=== PATIENT | male | born 1940 | race Caucasian/White ===

== ENCOUNTER → 2025-07-14 09:00 | Outpatient (REF) | payer MEDICARE, SELFPAY | LOC: RCS 09:00 | PROVIDERS: ATTENDING PHYSICIAN Nuclear Medicine Nuclear Cardiology; FAMILY PHYSICIAN Internal Medicine | DX: I25.10 Atherosclerotic heart disease of native coronary artery without angina pectoris (principal); Z01.818 Encounter for other preprocedural examination; R94.31 Abnormal electrocardiogram [ECG] [EKG] | CPT/HCPCS: 93306 ==

== ENCOUNTER 2025-07-28 06:24 | Day surgery (SDC) | payer MEDICARE, SELFPAY ==
[2025-07-11 11:01] LABS: Hematocrit 28.2 % (39.0-52.0); Hemoglobin 9.1 g/dL (13.0-18.0); Mean Corp Hgb Conc. 32.3 g/dL (33.0-37.0); Mean Corpuscular Volume 98.3 fL (80.0-94.0); Platelet Count 149 10^3/uL (130-400); Red Cell Dist. Width 12.7 % (11.5-14.5)
[2025-07-11 11:42] LABS: Blood Urea Nitrogen 54 mg/dl (9-20); Calcium 9.8 mg/dl (8.4-10.2); Carbon Dioxide 22 mmol/L (22-30); Chloride 109 mmol/L (98-107); Glucose 90 mg/dl (70-99); Potassium 5.3 mmol/L (3.5-5.1); Sodium 139 mmol/L (135-145); eGFR 15.66
[2025-07-11 13:58] VITALS: BMI 26.0
[2025-07-28] VITALS (9 sets, daily range): BP systolic 103–145; BP diastolic 53–78; BMI 26.0
[2025-07-28] MEDS: TYLENOL 1000 MG PO (07:58)
[2025-07-28] MEDS: NORMOSOL-R/PLASMALYTE-A 1000 IV (08:09)
== END 2025-07-28 12:30 | disposition home or self-care (01) ==
LOC: SDS 06:24
PROVIDERS: ATTENDING PHYSICIAN Surgery; FAMILY PHYSICIAN Internal Medicine; OTHER PHYSICIAN Internal Medicine Cardiovascular Disease
DX: K40.90 Unilateral inguinal hernia, without obstruction or gangrene, not specified as recurrent (principal)
CPT/HCPCS: 49650; 80048; 85027; 93005; C1781

== ENCOUNTER 2025-08-03 17:23 | Emergency (ER) | payer MEDICARE, SELFPAY ==
[2025-08-03 17:43] VITALS: BP 117/73
[2025-08-03] MEDS: TYLENOL 650 MG PO (20:38)
[2025-08-03] MEDS: ADACEL 0.5 ML IM (20:39)
--- NOTE | 2025-08-03 22:25 | ED.GENMED ---
History of Present Illness
General
Chief Complaint: Fall
Source: patient
Exam Limitations: none
Time Seen by Provider: 08/03/25 20:14
Nursing documentation reviewed up to this point in time: agreed with
History of Present Illness
History of Present Illness:
Patient is an 85-year-old male who presents to the emergency department after mechanical fall today. He states he was walking back into his home while carrying packages when he tripped on the step falling forward striking his face on the ground.
He denies any LOC however this fall was unwitnessed. After a few minutes he was able to get up and has been ambulatory independently without pain.
Patient states he had a very brief nosebleed which resolved. However, he did notice that he had obvious abrasions to his forehead and a small laceration of his nasal bridge. His urged him to come to the emergency department for further
imaging given obvious head injury.
Patient states he otherwise has felt well since fall. He denies any headache or neck pain. He denies any vomiting, changes in vision dizziness, or ataxia. His states he has been at his baseline mental status. He denies any pain in his
extremities.
He is not on any oral anticoagulation.
Past History
Past History
ED Past Medical History: CAD, CVA, HTN, Hypercholesterolemia, Valvular disease and Other (GI bleed, Stage 3 KD, BPH, ROLAND)
ED Past Surgical History: Appendectomy
Social History
Tobacco: Non-smoker
Alcohol: None
Personal:
Family History
Family History: Negative Diabetes, Hypertension or CAD
Review of Systems
Review of Systems
Allergies reviewed?: Yes
All Other Systems: ROS reviewed and negative except as documented in HPI and ROS
Phy Exam
Physical Exam
Physical Exam:
GENERAL: No acute distress
HEENT: Multiple abrasions to central forehead with additional abrasions/small skin tear noted to nasal bridge, no obvious deformity of nose or septal hematoma, no epistaxis, extraocular muscles intact, no signs of entrapment, dentition intact, no
other obvious trauma
NECK: no midline tenderness, normal range of motion, no other obvious trauma
BACK: no midline tenderness, no other obvious trauma
CHEST: no tenderness, no flail segment, no subcutaneous emphysema, no other obvious trauma
LUNGS: clear to auscultation bilaterally
CARDIOVASCULAR: regular rate and rhythm
ABDOMEN: soft, non-tender, no masses, no other obvious trauma
PELVIS: stable, no obvious injury
EXTREMITIES: moving all extremities, bilateral upper and lower extremities atraumatic and nontender with full range of motion, distal pulses intact, no other obvious trauma
NEUROLOGIC: awake, alert x 3, no focal deficits
Course
Orders/Labs/Results
Orders:
Orders
08/03/25 17:46
CT Head W/o Iv Contrast Urgent
Comment:
Reason For Exam: head trauma
08/03/25 20:27
Acetaminophen [Tylenol] 650 mg PO NOW STA
Tetanus/Diphth/Acelpertussis [Adacel] 0.5 ml IM .ONCE ONE
Vital Signs
Initial and Last Documented VS:
Initial Vital Signs
Temp Pulse Resp BP Pulse Ox
98.2 F 69 16 117/73 100
08/03/25 17:43 08/03/25 17:43 08/03/25 17:43 08/03/25 17:43 08/03/25 17:43
Last Documented Vital Signs
Temp Pulse Resp BP Pulse Ox
98.2 F 69 16 117/73 100
08/03/25 17:43 08/03/25 17:43 08/03/25 17:43 08/03/25 17:43 08/03/25 22:25
MDM/Problems Addressed
Differential Diagnosis Includes:
Not limited to: Contusion, concussion, intracranial hemorrhage, nasal fracture, laceration, etc.
MDM/Problems Addressed:
85-year-old male presenting after mechanical fall with head strike. No LOC. Patient has been ambulatory independently since fall. Vitals stable. On exam, patient is alert and oriented without any focal neurologic deficits. He does have multiple
abrasions to central forehead as well as nasal bridge. No current epistaxis. No septal hematoma. No midline cervical spine tenderness. No evidence of extremity injuries.
Prior to my evaluation, a non contrast head CT was obtained which shows no acute intracranial abnormality or visualized fracture of orbital/nasal bone. Small forehead hematoma noted.
Recommended additional CT of cervical spine given mechanism of injury however, patient declines and states he has no neck pain. He will monitor symptoms at home.
Tdap booster updated. Minor nasal bridge injury is more of an abrasion/skin tear rather than laceration. Will allow to heal by secondary intention. There�s no active bleeding. Will place topical antibiotic and cover with bandage.
Ultimately � feel stable for discharge home. Advised patient to monitor closely for any signs of infection. Return precautions discussed. Patient and patients comfortable with plan.
Chronic conditions affecting care:
N/A
Acute Exacerbation and/or Progression of Chronic Illness:
N/A
*Radiology
Radiology exam reviewed: radiology read reviewed
*Pulse Oximetry
SaO2: 100
Oxygen Mode of Delivery: Room air
Patient hypoxic: no
*EKG
Interpreted by ED Provider?: NA
*Briar Cutter Interpretation
Rate: Briar Cutter- N/A
*Critical Care Note
Total Time (30-74mins, 75-104mins- exclusive of procedures): Not Applicable
ED Attending Note
-
Portions of this chart may have been created with voice recognition software.� Occasional wrong word or��sound alike� substitutions may have occurred due to the inherent limitations of voice recognition software.
Discharge Plan
Departure
Patient Disposition: Home (Routine Discharge)
Date of Disposition: 08/03/25
Time of Disposition: 21:00
Patient with high blood pressure during this ER visit?: No
Condition: Good
Discharge Problem:
Fall, Head injury, Abscess of forehead, Abrasion of nose
Instructions: Head Injury in Adults (DC), Skin Abrasions (DC)
Prescriptions:
No Action
ascorbic acid (vitamin C) [Vitamin C] 500 MG tablet
500 mg PO DAILY
aspirin 81 MG tablet,delayed release (DR/EC)
81 mg PO DAILY
tamsulosin 0.4 MG capsule
0.4 mg PO HS
cholecalciferol (vitamin D3) 1,000 UNITS tablet
3,000 units PO DAILY
atorvastatin 40 MG tablet
40 mg PO QPM 30 Days Qty: 30 3RF
vitamin B complex Tablet
1 tab PO DAILY
acetaminophen 325 mg tablet
650 mg PO Q4HPRN PRN (Reason: mild pain) Qty: 1 0RF
Referrals:
Urban Gordon DO [Family Provider, Internal Medicine] - Follow up in 5-7 days
Activity Restrictions/Additional Instructions:
RETURN TO THE EMERGENCY DEPARTMENT WITH SEVERE HEADACHE OR NECK PAIN, CHANGE IN MENTAL STATUS, NUMBNESS/TINGLING OR WEAKNESS IN EXTREMITIES, VISUAL CHANGES, ANY SIGNS OF INFECTION AROUND ABRASIONS, OR ANY OTHER CONCERNS
- As discussed CT of your head showed soft tissue contusions of your forehead however no evidence of intracranial traumatic injuries.
- You did sustain abrasions to both your forehead and nasal bridge. Please keep wounds clean and dry. Apply topical antibiotic and monitor closely for signs of infection.
- Follow-up with your primary care provider for further evaluation/management in 1 week to ensure that symptoms are improving
Monitor your symptoms closely and return to the emergency department with any acute worsening/new symptoms or any other concerns
Interventions
Interventions:
*Risk Screen - Suicide Last Done: 08/03/25 17:43
*General Assessment Last Done: 08/03/25 19:07
*Neglect/Abuse Screening Last Done: 08/03/25 17:43
*ED COVID-19 Vaccine History Last Done: 08/03/25 19:07
*ED Influenza Vaccine History Last Done: 08/03/25 19:07
[facility] Fall Risk Assessment Tool Last Done: 08/03/25 19:08
*Nursing Disposition Last Done: 08/03/25 21:20
ED-Musculoskeletal Assessment Last Done: 08/03/25 19:06
ED- Neurological Assessment Last Done: 08/03/25 19:06
ED-Skin Assessment Last Done: 08/03/25 19:06
Discharge Date and Time
Discharge Date/Time: 08/03/25 21:20
Print Language: GREENLANDIC
== END 2025-08-03 21:20 | disposition home or self-care (01) ==
LOC: EMR 17:23
PROVIDERS: EMERGENCY PHYSICIAN Emergency Medicine; FAMILY PHYSICIAN Internal Medicine
DX: S09.90XA Unspecified injury of head, initial encounter (principal); S00.81XA Abrasion of other part of head, initial encounter; S00.31XA Abrasion of nose, initial encounter; W18.43XA Slipping, tripping and stumbling without falling due to stepping from one level to another, initial encounter; Y93.01 Activity, walking, marching and hiking; Y92.008 Other place in unspecified non-institutional (private) residence as the place of occurrence of the external cause; I25.10 Atherosclerotic heart disease of native coronary artery without angina pectoris; I12.9 Hypertensive chronic kidney disease with stage 1 through stage 4 chronic kidney disease, or unspecified chronic kidney disease; N18.31 Chronic kidney disease, stage 3a; E78.00 Pure hypercholesterolemia, unspecified; G47.33 Obstructive sleep apnea (adult) (pediatric); N40.0 Benign prostatic hyperplasia without lower urinary tract symptoms; Z23 Encounter for immunization; Z86.73 Personal history of transient ischemic attack (TIA), and cerebral infarction without residual deficits; Z79.82 Long term (current) use of aspirin
CPT/HCPCS: 99284; 90471; 70450; 90715